=== PATIENT | male | born 1960 | race Caucasian/White ===

== ENCOUNTER → 2018-11-28 10:12 | Outpatient (CLI) | payer BC ==
--- NOTE | 2018-11-30 13:29 | ST ---
PATIENT:YULIA TORRES MEDICAL RECORD: [id number] SEX: M LOCATION:[facility] ORDER #: ADMISSION DATE: 11/28/18 AGE OF PATIENT: 58 REFERRING PHYSICIAN: INTERPRETING PHYSICIAN: TIM REA MD DATE OF SERVICE: 11/28/2018 PROCEDURE: Nuclear stress test. He was exercised on standard Abhi protocol for 9 minutes achieving 85% max target heart rate response with 33 mCi of sestamibi injected at peak stress, 11 mCi used previously for rest images. FINDINGS: Gated SPECT reveals preserved ejection fraction at 60% with good wall motioning and thickening and brightening throughout all segments. SPECT imaging: Cardiology was used as myocardial perfusion agent. There is reversibility inferiorly and apically. This includes the basal, mid, apical, inferior segments as well as the apex itself. The degree of reversibility is moderate. The amount of myocardium involved is moderate to large. OVERALL IMPRESSION: This is an intermediate risk nuclear stress test with a moderate to large area of ischemia inferiorly and apically with Gated SPECT preserved at 60% suggestive of hemodynamically significant coronary artery disease. TRANSINT:[id number] Voice Confirmation ID: [id number] DOCUMENT ID: [id number] TIM REA MD at 1329 CC: [id number] DICTATION DATE: 11/28/18 1648 STOCKROOM CLERK: 11/29/18 [id number] [facility] CLI 11/28/18 [id number] [place] [address]
== END | disposition home or self-care (01) ==
LOC: D.HCCARDIO 10:12
PROVIDERS: ATTEND Internal Medicine Interventional Cardiology
DX: I20.9 Angina pectoris, unspecified (principal)